=== PATIENT | female | born 1975 | race African-American/Black ===

== ENCOUNTER → 2021-11-09 14:03 | Outpatient (CLI) | payer MEDICARE, SELFPAY ==
--- NOTE | 2021-11-09 14:03 | US_ITS ---
FINAL REPORT CLINICAL HISTORY: pain FINDINGS: Sonographic images at the area of interest were obtained. There is a 1.2 x 1.1 cm irregular hypoechoic area at the palpable area of interest at the lateral 5th toe suggestive of complex fluid. There is presumed subcutaneous edema/fluid in the lateral right ankle. IMPRESSION: Irregularity at the area of interest suggestive of complex fluid. Reviewed, Interpreted and Dictated by Jordan Ross III, MD Transcribed by Daisy Rivera Authenticated and [facility]
--- NOTE | 2021-11-09 14:03 | XR_ITS ---
FINAL REPORT CLINICAL HISTORY: pain for 1 month FINDINGS: RIGHT FOOT Three views of the right foot demonstrate no acute fracture or dislocation. The visualized joint spaces are normally aligned. The soft tissues are unremarkable. IMPRESSION: No acute bony abnormality. Reviewed, Interpreted and Dictated by Azul Grant MD Transcribed by Kati Yates Authenticated by Azul Grant MD on 11/09/2021 03:52:28 PM [facility]
--- NOTE | 2021-11-09 14:03 | XR_ITS ---
FINAL REPORT CLINICAL HISTORY: pain for 1 month FINDINGS: LEFT FOOT Three views of the left foot demonstrate no acute fracture or dislocation. The visualized joint spaces are normally aligned. The soft tissues are unremarkable. IMPRESSION: No acute bony abnormality. Reviewed, Interpreted and Dictated by Azul Grant MD Transcribed by Kati Yates Authenticated by Azul Grant MD on 11/09/2021 03:52:51 PM [facility]
== END ==
PROVIDERS: PCP Emergency Medicine; Visit Provider Podiatrist
DX: M72.2 Plantar fascial fibromatosis (principal); M79.671 Pain in right foot; M79.672 Pain in left foot; M77.51 Other enthesopathy of right foot and ankle
CPT/HCPCS: 73630; 76882

== ENCOUNTER → 2021-12-26 16:21 | Outpatient (CLI) | payer MEDICARE, MEDICAID, SELFPAY ==
--- NOTE | 2021-12-26 16:22 | MR_ITS ---
PROCEDURE INFORMATION: Exam: MR Right Lower Extremity Joint Without Contrast; Ankle Exam date and time: 12/26/2021 4:35 PM Age: 46 years old Clinical indication: Pain; Ankle; Right; Additional info: Foot and ankle pain TECHNIQUE: Imaging protocol: Magnetic resonance imaging of the Right lower extremity without contrast. Exam focused on the ankle. COMPARISON: 1. US EXTREMITY RT LIMITED 11/09/2021 2:04 PM (fifth toe incompletely included on the field of view of the study) 2. CR XR FOOT WT BEARING RT 3V 11/09/2021 2:30 PM FINDINGS: Bones and cartilage: There is no acute fracture or dislocation. No aggressive bone lesions are present. Joint spaces: A mild amount of fluid decompresses posteriorly from the subtalar joint. LIGAMENTS: Distal tibiofibular syndesmosis: Unremarkable. No tear. Anterior talofibular ligament: Unremarkable. No tear. Posterior talofibular ligament: Unremarkable. No tear. Calcaneofibular ligament: Unremarkable. No tear. Deltoid ligament complex: Unremarkable. No tear. TENDONS: Flexor tendons of foot: Fluid surrounding the flexor hallucis tendon has likely decompressed from the ankle joint. Tibialis posterior tendon: Mild tenosynovitis involves the tibialis posterior tendon. Peroneal tendons: Prominent tenosynovitis involves the peroneal tendon sheath. A longitudinal split tear involves the peroneus brevis tendon. Extensor tendons of foot: Unremarkable as visualized. Tibialis anterior tendon: Unremarkable. Achilles tendon: There is no tear or significant tendinosis involving the Achilles tendon. Tarsal canal (Sinus tarsi): The sinus tarsi has normal fat signal. Tarsal tunnel: Unremarkable. Muscles: Unremarkable. Soft tissues: Focal severe soft tissue edema is present superficial to the lateral malleolus. A trace amount of fluid is present in the retrocalcaneal bursa. Plantar fascia: The proximal plantar fascia is mildly thickened and has mildly increased T2 signal. Edema is present in the adjacent soft tissues. The appearance is consistent with moderate plantar fasciitis (fasciopathy). IMPRESSION: 1. Severe tenosynovitis of the peroneal tendons. 2. Peroneus brevis longitudinal split tear. 3. Moderate plantar fasciitis (fasciopathy). 4. Mild tenosynovitis of the tibialis posterior tendon.
--- NOTE | 2021-12-26 16:22 | MR_ITS ---
PROCEDURE INFORMATION: Exam: MR Right Lower Extremity Other Than Joint Without Contrast; Foot Exam date and time: 12/26/2021 4:35 PM Age: 46 years old Clinical indication: Pain; Foot; Right; Additional info: Foot and ankle pain TECHNIQUE: Imaging protocol: Magnetic resonance imaging of the Right lower extremity without contrast. Exam focused on the foot. COMPARISON: 1. CR XR FOOT WT BEARING RT 3V 11/09/2021 2:30 PM 2. US EXTREMITY RT LIMITED 11/09/2021 2:04 PM FINDINGS: Bones and cartilage: A degenerative appearing subchondral cyst involves the first metatarsal head. Mild hallux valgus is associated with a mild bunion deformity. Focal severe edema is present along the lateral aspect of the lateral malleolus. There is no acute fracture or dislocation. No aggressive bone lesions are present. The medial (tibial) sesamoid bone along the plantar aspect of the first metatarsal head appears chronically bipartite. Joint spaces: No significant joint effusion. LIGAMENTS: Lisfranc ligament: Unremarkable. No evidence of tear. TENDONS: Flexor tendons of foot: Unremarkable. No evidence of tear. Tibialis posterior tendon: Mild tenosynovitis involves the tibialis posterior tendon. Peroneal tendons: Severe tenosynovitis involves the peroneal tendon sheath. A longitudinal split tear involves the peroneus brevis tendon. Extensor tendons of foot: Unremarkable. No evidence of tear. Tibialis anterior tendon: Unremarkable as visualized. Tarsal canal (Sinus tarsi): Unremarkable. Tarsal tunnel: Unremarkable. Bursae: Focal fluid between the first through fourth metatarsal heads may represent intermetatarsal bursitis, but can be present between the metatarsal heads in asymptomatic patients. Soft tissues: Soft tissue edema is present along the dorsolateral forefoot and mildly present along the plantar aspect of the second through fifth metatarsophalangeal joints. There is no focal collection to correspond to the finding on the 11/09/2021 ultrasound. Plantar fascia: The proximal plantar fascia is mildly thickened and has mildly increased T2 signal. Edema is present in the adjacent soft tissues. The appearance is consistent with moderate plantar fasciitis (fasciopathy). IMPRESSION: 1. Severe tenosynovitis of the peroneal tendons. 2. Peroneus brevis longitudinal split tear. 3. Moderate plantar fasciitis (fasciopathy). 4. Mild tenosynovitis of the tibialis posterior tendon. 5. Fluid between the first through fourth metatarsal heads, suggesting intermetatarsal bursitis but can be seen in asymptomatic patients. 6. Degenerative subchondral cyst involving the first metatarsal head. 7. Mild hallux valgus. 8. No focal fluid collection or mass involving the lateral right fifth toe to correspond to findings on the the 11/09/2021 ultrasound.
== END ==
PROVIDERS: PCP Emergency Medicine; Visit Provider Podiatrist
DX: M25.371 Other instability, right ankle (principal); M25.471 Effusion, right ankle; M25.571 Pain in right ankle and joints of right foot; M21.621 Bunionette of right foot; M21.622 Bunionette of left foot; M77.51 Other enthesopathy of right foot and ankle
CPT/HCPCS: 73718; 73721